=== PATIENT | female | born 1945 | race African-American/Black ===

== ENCOUNTER 2020-03-04 14:36 | Emergency (ER) | payer MEDICARE, OTHER ==
[~2020-03-04] VITALS: Ht 152.4 cm; Wt 79.0 kg
[2020-03-04] MEDS ORDERED: CEPHALEXIN 250MG CAPSULE PO ONE (15:30)
[2020-03-04] MEDS ORDERED: CLONIDINE 0.2MG TABLET PO ONE (15:30)
[2020-03-04] MEDS ORDERED: SULFAMETHOXAZOLE/TRIMETHOPRIM 800/160MG TABLET PO ONE (15:30)
[2020-03-04] MEDS ORDERED: IBUPROFEN 600MG TABLET PO ONE (15:30)
[2020-03-04 15:50] LABS: BASOPHILS % 0.5 % (0.0-2.0); EOSINOPHILS % 1.1 % (0.0-5.0); HEMATOCRIT. 43.3 % (36.0-48.0); HEMOGLOBIN. 14.4 g/dL (12.0-16.0); LYMPHOCYTES % 19.2 % (20.0-50.0); MEAN CORPUSCULAR HEMOGLOBIN 30.2 pg (28.0-32.0); MEAN CORPUSCULAR VOLUME 90.9 fL (81.0-99.0); MEAN PLATELET VOLUME 8.6 fl (7.4-10.4); MONOCYTES % 7.2 % (2.0-8.0); PLATELET 185 x1000/uL (130-400); RED BLOOD CELL COUNT 4.76 mill/uL (4.2-5.4); RED CELL DISTRIBUTION WIDTH 13.9 % (11.6-14.6)
[2020-03-04 15:54] LABS: CHLORIDE 107 mEq/L (98-107)
[2020-03-04 16:35] LABS: INR 1.1; PARTIAL THROMBOPLASTIN TIME 27.1 sec (23.4-31.0); PROTHROMBIN TIME 11.2 sec (9.6-11.0)
[2020-03-04 17:00] VITALS: BP 145/60
== END 2020-03-04 18:00 | disposition home or self-care (01) ==
LOC: ER 14:36
DX: I80.02 Phlebitis and thrombophlebitis of superficial vessels of left lower extremity (principal); I10 Essential (primary) hypertension; Z90.49 Acquired absence of other specified parts of digestive tract; Z90.710 Acquired absence of both cervix and uterus
CPT/HCPCS: 36415; 80048; 85025; 93005; 93970; 99284